=== PATIENT | female | born 1955 | race American Indian/Alaskan Native ===

== ENCOUNTER 2016-12-10 07:47 | Outpatient (CLI) | payer OTHER ==
[2016-12-10] MEDS ORDERED: PROVENTIL IH ONE (08:06)
== END 2016-12-10 07:48 | disposition home or self-care (01) ==
LOC: PF 07:47
PROVIDERS: ATTEND Internal Medicine
DX: J44.9 Chronic obstructive pulmonary disease, unspecified (principal); J45.909 Unspecified asthma, uncomplicated; J39.9 Disease of upper respiratory tract, unspecified
CPT/HCPCS: 94060